=== PATIENT | male | born 1960 | race Caucasian/White ===

== ENCOUNTER 2024-09-07 08:07 | Emergency (ER) | payer BC, SELFPAY ==
[2024-09-07] VITALS (11 sets, daily range): BP systolic 104–154; BP diastolic 65–85; BMI 37.7
[2024-09-07 09:30] LABS: % Basophils 0.2 % (0-2); % Eosinophils 1.2 % (0-6); % Immature Granulocytes 0.6 % (0-0.5); % Lymphocytes 21.1 % (20.5-51.1); % Monocytes 8.9 % (1.7-9.3); Absolute Eosinophils 0.1 10^3/uL (0-0.7); Absolute Immature Granulocytes 0.1 10^3/uL (0-0.05); Absolute Lymphocytes 2.4 10^3/uL (1.2-3.4); Absolute Neutrophils 7.8 10^3/uL (1.4-6.5); Hematocrit 43.8 % (39.0-52.0); Hemoglobin 15.5 g/dL (13.0-18.0); Mean Corp Hgb Conc. 35.4 g/dL (33.0-37.0); Mean Corpuscular Volume 84.9 fL (80.0-94.0); Mean Platelet Volume 9.7 fL (7.4-10.4); Nucleated Red Blood Cells % 0 % (-); Platelet Count 267 10^3/uL (130-400); Red Blood Cell Count 5.16 10^6/uL (4.70-6.10); Red Cell Dist. Width 12.6 % (11.5-14.5); White Blood Cell Count 11.4 10^3/uL (4.8-10.8)
[2024-09-07 09:38] LABS: ALT (SGPT) 29 U/L (0-50); AST (SGOT) 16 U/L (17-59); Albumin 4.1 g/dl (3.5-5.0); Alkaline Phosphatase 58 U/L (38-126); Blood Urea Nitrogen 23 mg/dl (9-20); Calcium 9.8 mg/dl (8.4-10.2); Carbon Dioxide 28 mmol/L (22-30); Chloride 109 mmol/L (98-107); Estimated Creatinine Clearance > 125 ml/min; Glucose 178 mg/dl (70-99); Potassium 4.3 mmol/L (3.5-5.1); Sodium 141 mmol/L (135-145); Total Bilirubin 1.1 mg/dl (0.2-1.3); Total Protein 6.5 g/dl (6.3-8.2); eGFR > 60.00
[2024-09-07 09:49] LABS: Troponin I < 0.012 ng/ml
[2024-09-07 10:34] LABS: D-Dimer 0.64 ug/mlFEU (0.00-0.50)
[2024-09-07 10:42] LABS: Lipase 42 U/L (23-300)
--- NOTE | 2024-09-07 11:55 | ED.GENMED ---
History of Present Illness
General
Chief Complaint: Chest Pain
Source: patient
Exam Limitations: none
Time Seen by Provider: 09/07/24 09:07
Nursing documentation reviewed up to this point in time: agreed with
History of Present Illness
History of Present Illness:
see MDM
Past History
Past History
ED Past Medical History: HTN, Hypercholesterolemia and NIDDM
Phy Exam
Physical Exam
Physical Exam:
GENERAL: Alert , in no apparent distress
EYE: pupils equal and reactive
NECK: Supple
ENT: o/p clr, mmm.
CARDIAC: Regular rate and rhythm .no edema
LUNGS: Clear breath sounds bilaterally, no acute respiratory distress, no wheezes/rales/rhonchi
ABDOMEN: Soft, without focal tenderness, no r/g, no cvat, normal bowel sounds
NEUROLOGICAL: Alert and oriented, no focal neuro deficits
SKIN: Warm and dry, skin intact.
MUSCULOSKELETAL: No edema, well perfused. neg henrique's sign
PSYCH: Normal and appropriate interaction.
Scores
Heart Score for Chest Pain Patients
STEMI patient?: No
History: Slightly or Non-Suspicious
ECG: Nonspecific Repolarization
Age: >45 - <65 years
Risk Factors: >/= 3 Risk Factors or History of CAD
Troponin: </= Normal Limit
Heart Score for Chest Pain Patients: 4
Heart Score Risk: 20.3% MACE over next 6 weeks
Course
Orders/Labs/Results
Orders:
Orders
09/07/24 08:08
Electrocardiogram (*1) Urgent
Reason for Study: Chest Pain
EKG- Treatment ONCE
09/07/24 09:16
Complete Blood Count/With Diff Urgent
Comprehensive Metabolic Panel Urgent
Lipase Urgent
Comment: ADD ON
Troponin I Urgent
09/07/24 09:40
Add On- LAB Urgent
Tests Added?: lipase
09/07/24 10:14
D-Dimer Urgent
09/07/24 10:42
Electrocardiogram (*1) Urgent
Reason for Study: Chest Pain
CT Chest PE Study Urgent
Comment:
Reason For Exam: chest tightness, sob
EKG- Treatment ONCE
09/07/24 12:40
Troponin I Urgent
Abnormal Lab Results
09/07/24 09/07/24
09:16 10:14
WBC 11.4 H 10^3/uL
(4.8-10.8)
Abs Immat Gran (auto) 0.1 H 10^3/uL
(0-0.05)
Absolute Neuts (auto) 7.8 H 10^3/uL
(1.4-6.5)
Absolute Monos (auto) 1.0 H 10^3/uL
(0.1-0.6)
Immature Gran % 0.6 H %
(0-0.5)
D-Dimer 0.64 H ug/mlFEU
(0.00-0.50)
Chloride 109 H mmol/L
(98-107)
BUN 23 H mg/dl
(9-20)
Glucose 178 H mg/dl
(70-99)
AST 16 L U/L
(17-59)
09/07/24 09:16
09/07/24 09:16
Vital Signs
Initial and Last Documented VS:
Initial Vital Signs
Temp Pulse Resp BP Pulse Ox
36.5 C 68 16 154/85 97
09/07/24 08:14 09/07/24 08:14 09/07/24 08:14 09/07/24 08:14 09/07/24 08:14
Last Documented Vital Signs
Temp Pulse Resp BP Pulse Ox
36.4 C 82 16 137/77 96
06/24/25 14:21 09/07/24 14:21 09/07/24 14:21 09/07/24 14:21 09/07/24 14:21
MDM/Problems Addressed
Differential Diagnosis Includes:
see MDM
MDM/Problems Addressed:
Note:
CHIEF COMPLAINT(S)
Chest discomfort
HISTORY OF PRESENT ILLNESS
The patient is a 64-year-old male with a medical history of hypertension and type 2 diabetes mellitus, presenting with sudden onset chest tightness while driving to work. The tightness began around 830 am in his central chest and progressively
worsened, extending into the abdomen but not radiating to the back. The episode lasted approximately five minutes. The patient denies nausea, diaphoresis, exertional chest pain, and recent travel. He reports not experiencing shortness of breath but
admits possible hyperventilation due to anxiety. He rates the pain as severe enough to prompt an immediate visit to the emergency department.
The patient manages hypertension with benazepril and takes rosuvastatin for hyperlipidemia. His diabetes is controlled with diet and weekly semaglutide injections. He follows up with a woods overseer at [place] for baseline assessment due to family
history of cardiovascular issues. Notably, the patient has severe osteoarthritis in both knees and recently received a cortisone injection.
The patient has significant stress related to recent house purchases and related complications. His blood pressure is regularly monitored at home and reported as stable.
ADDITIONAL HISTORY OBTAINED FROM SOURCES OTHER THAN THE PATIENT
According to the patients reporting, a family history of hypertension warranted routine cardiac evaluations.
CHRONIC MEDICAL CONDITIONS SIGNIFICANTLY AFFECTING CARE
Chronic conditions affecting care: Hypertension, Type 2 Diabetes Mellitus, Hyperlipidemia, Severe Osteoarthritis
SOCIAL DETERMINANTS AFFECTING HEALTH
The patient reports considerable stress related to recent home purchase issues, including defective HVAC installation, contributing to his anxiety.
MEDICATIONS
- Benazepril 10 mg daily
- Aspirin (low-dose)
- Rosuvastatin
- Semaglutide 5 mg weekly
REVIEW OF SYSTEMS
- Cardiovascular: Chest tightness, no exertional chest pain.
- Respiratory: No shortness of breath.
- Gastrointestinal: Abdominal pain with the chest tightness.
PHYSICAL EXAM
Nursing notes reviewed and vital signs reviewed.
regular, no edema
well appearing
nontender
PLAN
Order a chest X-ray to evaluate heart size and detect any pulmonary fluid. Obtain laboratory work to check for cardiac enzymes. Monitor patient for any further episodes of chest pain. Recommend follow-up with the patients woods overseer for further
cardiac evaluation, especially considering the three-week span since the last cortisone injection for knee arthritis.
DIFFERENTIAL DIAGNOSIS
The Differential Diagnosis includes, in no particular order and is not limited to:
1. Angina
2. Myocardial Infarction
3. Costochondritis
4. Gastroesophageal Reflux Disease
5. Anxiety Attack
6. Pulmonary Embolism
7. Aortic Dissection
8. Gallbladder Disease
9. Hypertensive Crisis
10. Peptic Ulcer Disease
CARE-UPDATE
09/07/24 - 10:55
Mr. Lyman initial lab results were normal with no alarming findings. However, due to reported chest tightness and mild shortness of breath, a D-dimer test was conducted and returned slightly elevated, which necessitated ordering a CAT scan of the
lungs to rule out the possibility of a pulmonary embolism. Despite brief concerns about tachycardia, Mr. John did not feel his heart racing, and his pulse was verified as normal upon self-check.
ekg incomplete RBBB, normal sinus rhythm, no ischemia;
CT PE study neg except for coronary calcifications
pt encouraged to have dclose f/u with his woods overseer
trop x 2 neg.
d/c home
*Pulse Oximetry
SaO2: 94
Oxygen Mode of Delivery: Room air
Patient hypoxic: no (97)
*Critical Care Note
Total Time (30-74mins, 75-104mins- exclusive of procedures): Not Applicable
ED Attending Note
-
Portions of this chart may have been created with voice recognition software.� Occasional wrong word or��sound alike� substitutions may have occurred due to the inherent limitations of voice recognition software.
Discharge Plan
Departure
Patient Disposition: Home (Routine Discharge)
Date of Disposition: 09/07/24
Time of Disposition: 14:12
Patient with high blood pressure during this ER visit?: No
Discharge Problem:
Chest pain
Instructions: Chest Pain NON-DHP Bead Wire Insulator Follow Up
Prescriptions:
No Action
amlodipine 10 mg Tablet
10 mg PO DAILY
rosuvastatin 10 mg Tablet
10 mg PO DAILY
Ozempic 1 mg/dose (2 mg/1.5 mL) Pen Injector
1 mg SC QWEEK
Referrals:
Win Morgan MD [Family Provider] - Follow up in 2-3 days
Activity Restrictions/Additional Instructions:
YOU HAD A WORK UP HERE TO EVALUATE FOR YOUR CHEST PAIN WITHOUT ANY CONCERNING FINDINGS
BUT YOU DID HAVE SOME CORONARY ARTERY CALCIFICIATIONS
YOU MAY NEED ANOTHER UPDATED STRESS TEST.
AVOID EXERTIONAL ACTIVITY.
PELASE CALL YOUR CUSTOM DECORATING CONSULTANT TODAY FOR AN APPT THIS WEEK
RETURN FOR: RECURRENT PAIN/SHORTNESS OF BREATH, PASSING OUT, OR ANY CONCERNS.
Interventions
Interventions:
*Risk Screen - Suicide Last Done: 09/07/24 08:10
*General Assessment Last Done: 09/07/24 09:23
*Neglect/Abuse Screening Last Done: 09/07/24 08:10
*ED- Fall Risk Assessment Last Done: 09/07/24 09:23
*ED COVID-19 Vaccine History Last Done: 09/07/24 09:23
*Nursing Disposition Last Done: 09/07/24 14:22
ED- Cardiac Assessment Last Done: 09/07/24 09:23
Discharge Date and Time
Discharge Date/Time: 09/07/24 14:26
Print Language: GREENLANDIC
[2024-09-07 13:25] LABS: Troponin I < 0.012 ng/ml
== END 2024-09-07 14:26 | disposition home or self-care (01) ==
LOC: EMR 08:07
PROVIDERS: Physician Assistant; EMERGENCY PHYSICIAN Emergency Medicine; FAMILY PHYSICIAN Family Medicine
DX: R07.89 Other chest pain (principal); R06.02 Shortness of breath; I10 Essential (primary) hypertension; E78.00 Pure hypercholesterolemia, unspecified; E11.9 Type 2 diabetes mellitus without complications; M17.0 Bilateral primary osteoarthritis of knee; Z79.899 Other long term (current) drug therapy; Z79.82 Long term (current) use of aspirin; Z96.641 Presence of right artificial hip joint
CPT/HCPCS: 99284; 71275; 80053; 83690; 84484; 85025; 85379; 93005; Q9967